=== PATIENT | female | born 2000 | race Caucasian/White ===

== ENCOUNTER 2025-03-28 16:00 | Outpatient (CLI) | payer OTHER, SELFPAY | END 2025-03-28 16:01 | disposition home or self-care (01) | LOC: NFLDREF 03-29 23:25 | PROVIDERS: PCP Physician Assistant Medical; Referring Provider Physician Assistant Medical; Visit Provider Physician Assistant Medical | DX: R79.89 Other specified abnormal findings of blood chemistry (principal); R53.83 Other fatigue; F41.9 Anxiety disorder, unspecified; N92.0 Excessive and frequent menstruation with regular cycle; Z11.3 Encounter for screening for infections with a predominantly sexual mode of transmission | CPT/HCPCS: 80053; 82306; 82607; 84443; 87491; 87591 ==

== ENCOUNTER 2025-06-09 10:25 | Outpatient (CLI) | payer OTHER, SELFPAY | END 2025-06-09 10:26 | disposition home or self-care (01) | LOC: NFLDREF 06-13 17:45 | PROVIDERS: PCP Physician Assistant Medical; Referring Provider Physician Assistant Medical; Visit Provider Physician Assistant Medical | DX: R79.89 Other specified abnormal findings of blood chemistry (principal); I42.9 Cardiomyopathy, unspecified; R53.83 Other fatigue; N92.0 Excessive and frequent menstruation with regular cycle; Z01.818 Encounter for other preprocedural examination | CPT/HCPCS: 80053; 82306; 85610; 86850; 86900; 86901 ==

== ENCOUNTER 2025-06-29 10:27 | Outpatient (CLI) | payer OTHER, SELFPAY | END 2025-06-29 10:28 | disposition home or self-care (01) | PROVIDERS: PCP Physician Assistant Medical; Referring Provider Physician Assistant Medical; Visit Provider Physician Assistant Medical | DX: I50.22 Chronic systolic (congestive) heart failure (principal); D50.9 Iron deficiency anemia, unspecified | CPT/HCPCS: 82728 ==